=== PATIENT | male | born 1975 | race Caucasian/White ===

== ENCOUNTER 2018-04-28 23:19 | Emergency (ER) | payer BC, OTHER ==
[2018-04-28 23:27] VITALS: RESP 18; TEMP 98.5; O2SAT 97
[2018-04-28] MEDS ORDERED: Tdap Vaccine 0.5 ml Vial (10-64 yrs) IM ONE (23:53)
[2018-04-29] MEDS ORDERED: Tdap Vaccine 0.5 ml Vial (10-64 yrs) IM ONE (00:31)
[2018-04-29 00:46] VITALS: BP 136/84; PULSE 80
--- NOTE | 2018-04-29 01:16 | ED PDOC ---
Upper Extremity Pain/Injury Time Seen by Provider: 04/28/18 23:41 Chief Complaint (Nursing): Upper Extremity Problem/Injury Chief Complaint (Provider): right elbow swelling and redness History Per: Patient History/Exam Limitations: no limitations Onset/Duration Of Symptoms: Hrs (earlier today) Current Symptoms Are (Timing): Still Present Quality: "Pain" Additional Complaint(s): Sachi Lopez is a 42 year old male, with no significant past medical history, who presents to the emergency department after he noticed earlier today he had mild pain, swelling and redness to his right elbow. 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 He did not take any medications to help with the pain. He denies any trauma, fever, chills, numbness or tingling. No further medical complaints. PMD: None provided. Past Medical History Reviewed: Historical Data, Nursing Documentation, Vital Signs Vital Signs: Last Vital Signs Temp 98.5 F 04/28/18 23:23 Pulse 80 04/29/18 00:46 Resp 18 04/28/18 23:23 BP 136/84 04/29/18 00:46 Pulse Ox 97 04/28/18 23:23 - Medical History PMH: Asthma Denies: Anxiety, Bipolar Disorder, Depression, Pancreatitis, Paranoia, Post Traumatic Stress Disorder, Schizophrenia, Sexually Transmitted Disease - Surgical History Surgical History: No Surg Hx Denies: Appendectomy, CABG, Carotid Endarterectomy, Cholecystectomy, Coronary Stent - Family History Family History: States: Unknown Family Hx - Social History Current smoker - smoking cessation education provided: No Alcohol: None Drugs: Denies - Home Medications Home Medications: Ambulatory Orders Medication Instructions Recorded Acetaminophen [Tylenol] 650 mg PO Q6 PRN #0 tab 07/27/14 Acetaminophen/Oxycodone Hydr 1 tab PO Q6 PRN #30 tab 07/27/14 [Percocet 325 mg-5 mg] Cephalexin [cephalexin] 500 mg PO Q6 #28 cap 04/29/18 - Allergies Allergies/Adverse Reactions: Allergies Allergy/AdvReac Type Severity Reaction Status Date / Time No Known Allergies Allergy Verified 07/27/14 03:19 Review of Systems ROS Statement: Except As Marked, All Systems Reviewed And Found Negative Constitutional: Negative for: Fever, Chills Musculoskeletal: Positive for: Arm Pain (right elbow swelling and redness) Neurological: Negative for: Numbness (tingling) Physical Exam - Reviewed Nursing Documentation Reviewed: Yes Vital Signs Reviewed: Yes - Physical Exam Appears: Positive for: No Acute Distress Head Exam: Positive for: ATRAUMATIC, NORMAL INSPECTION, NORMOCEPHALIC Skin: Positive for: Normal Color, Warm, Dry Eye Exam: Positive for: Normal appearance, EOMI, PERRL Neck: Positive for: Painless ROM Respiratory: Negative for: Respiratory Distress Pulses-Radial (L): 2+ Pulses-Radial (R): 2+ Extremity: Positive for: Normal ROM (full ROM actively of the right elbow), Swelling (under right posterior elbow there is a mild erythema with minimal swelling, no fluctuance and non-indurated with a superficial abrasions over it.) . Negative for: Deformity Neurologic/Psych: Positive for: Alert, Oriented - ECG O2 Sat by Pulse Oximetry: 97 (RA) Pulse Ox Interpretation: Normal Medical Decision Making Medical Decision Making: Time: 23:41 Initial Impression: Cellulitis Initial Plan: --Adacel 0.5 ml IM --Keflex 500 mg PO --Elbow right 3 views [RAD] --Reevaluation 00:35 Upon provider reevaluation patient is feeling better, is medically stable, and requires no further treatment in the ED at this time. Patient will be discharged home with Rx for Cephalexin. Counseling was provided and all questions were answered regarding diagnosis and need for follow up with orthopedist and clinic. There is agreement to discharge plan. Return if symptoms persist or worsen. ----- Scribe Attestation: Documented by Simon Toscano, acting as a scribe for Paolo Arciniega PA-C. Provider Scribe Attestation: All medical record entries made by the Scribe were at my direction and personally dictated by me. I have reviewed the chart and agree that the record accurately reflects my personal performance of the history, physical exam, medical decision making, and the department course for this patient. I have also personally directed, reviewed, and agree with the discharge instructions and disposition. Disposition - Clinical Impression Clinical Impression: Cellulitis - Disposition Referrals: [facility] [Outside] Nacho Mccarthy III, MD [Staff Provider] - Disposition: Routine/Home Disposition Time: 00:35 Condition: STABLE Additional Instructions: SACHI LOPEZ, thank you for letting us take care of you today. Your provider was Kenn Boone MD and you were treated for BITE:RT ELBOW. The emergency medical care you received today was directed at your acute symptoms. If you were prescribed any medication, please fill it and take as directed. It may take several days for your symptoms to resolve. Return to the Emergency Department if your symptoms worsen, do not improve, or if you have any other problems. Please contact your doctor or call one of the physicians/clinics you have been referred to that are listed on the Patient Visit Information form that is included in your discharge packet. Bring any paperwork you were given at discharge with you along with any medications you are taking to your follow up visit. Our treatment cannot replace ongoing medical care by a primary care provider outside of the emergency department. Thank you for allowing the [facility] team to be part of your care today. If you had an X-Ray or CT scan: A Radiologist will review the ED reading if any change in treatment is needed we will contact you. If you had a blood, urine, or wound culture: It will take several days for the results, if any change in treatment is needed we will contact you. If you had an STI test: It will take 48 hours for the results. Please call after 1 week if you have not heard back. Prescriptions: Cephalexin [cephalexin] 500 mg PO Q6 #28 cap Instructions: Cellulitis (Skin Infection), Adult (DC) Forms: [facility] (Tai[place]ese) Print Language: GERMAN
--- NOTE | 2018-04-29 14:52 | RAD ---
Date of service: 04/28/2018 PROCEDURE: Radiographs of the right elbow. HISTORY: pain and swelling COMPARISON: No prior. FINDINGS: BONES: Normal. No fracture. JOINTS: Normal. No osteoarthritis. SOFT TISSUES: Normal. JOINT EFFUSION: None. OTHER FINDINGS: None. IMPRESSION: Unremarkable radiographs of the right elbow.
== END 2018-04-29 00:47 | disposition home or self-care (01) ==
LOC: H.ER 23:19
DX: L03.113 Cellulitis of right upper limb (principal); Z23 Encounter for immunization